=== PATIENT | male | born 1970 | race American Indian/Alaskan Native ===

== ENCOUNTER 2017-11-16 10:58 | Emergency (ER) | payer SELFPAY ==
[2017-11-16 11:17] VITALS: BP 104/67
[2017-11-16] MEDS ORDERED: PEPCID PO ONE (12:52)
[2017-11-16] MEDS ORDERED: TORADOL IM ONE (12:52)
--- NOTE | 2017-11-16 12:54 | Emergency Department Report ---
Blank Doc - Documentation Documentation: Patient is a 47-year-old male whose presenting with lower chest discomfort. Patient states he has right and left lower chest pain along the distribution of his diaphragm. Patient states it's a pleuritic pain and also hurts when he moves. Patient denies any cough congestion and fevers chills nausea vomiting. Patient does have some mild shortness of breath associated with this pain. Patient's EKG is within normal limits. Because of the pleuritic nature of the patient's pain and a d-dimer has been order patient's pain has been constant troponin has been ordered to rule out acute coronary syndrome. Chest x-ray will be performed as well. Patient will be reassessed. Ed
--- NOTE | 2017-11-16 13:00 | Emergency Department Report ---
ED Chest Pain HPI - General Chief Complaint: Chest Pain Stated Complaint: CHEST PAIN Time Seen by Provider: 11/16/17 12:47 Source: patient, family Mode of arrival: Ambulatory Limitations: No Limitations - History of Present Illness Initial Comments: Patient is a 47-year-old male whose presenting with lower chest discomfort. Patient states he has right and left lower chest pain along the distribution of his diaphragm. Patient states it's a pleuritic pain and also hurts when he moves. Patient denies any cough congestion and fevers chills nausea vomiting. Patient does have some mild shortness of breath associated with this pain. MD Complaint: chest pain, other (shortness of breath) -: This morning Onset: during rest Pain Location: left chest (left lower chest) Pain Radiation: none Severity: severe Severity scale (0 -10): 9 Quality: sharp Consistency: intermittent Improves With: nothing Worsens With: inspiration Context: other (unknown) re: other (some shortness of breath which is intermittent). denies: nausea, vomting, diaphoresis, dyspnea, sense of impending doom Other Symptoms: denies: cough, fever, syncope, rash, acid taste in mouth, leg swelling, palpitations, burping Treatments Prior to Arrival: none Aspirin use within the Past 7 Days: (0) No - Related Data On Oral Contraceptives: No Home Medications Medication Instructions Recorded Confirmed Last Taken No Known Home Medications [No 11/16/17 11/16/17 Unknown Reported Home Medications] Allergies Allergy/AdvReac Type Severity Reaction Status Date / Time No Known Allergies Allergy Verified 11/16/17 11:14 Heart Score - HEART Score History: Slightly suspicious EKG: Normal Age: 45-65 Risk factors: 1-2 risk factors Troponin: < normal limit HEART Score: 2 - Critical Actions Critical Actions: 0-3 pts:0.9-1.7%risk of adverse cardiac event.Candidate for discharge ED Review of Systems ROS: Stated complaint: CHEST PAIN Other details as noted in HPI Constitutional: denies: chills, fever Eyes: denies: eye pain, eye discharge, vision change ENT: denies: ear pain, throat pain Respiratory: SOB with exertion, SOB at rest. denies: cough, orthopnea, shortness of breath, stridor, wheezing Cardiovascular: chest pain. denies: palpitations, dyspnea on exertion, edema, syncope, paroxysmal nocturnal dyspnea Gastrointestinal: denies: abdominal pain, nausea, vomiting, diarrhea, constipation, hematemesis, melena, hematochezia Genitourinary: denies: dysuria Musculoskeletal: denies: back pain, joint swelling, arthralgia, myalgia Skin: denies: rash, lesions Neurological: denies: headache, weakness, numbness, paresthesias, abnormal gait , vertigo Psychiatric: denies: anxiety ED Past Medical Hx - Past Medical History Previous Medical History?: No - Surgical History Past Surgical History?: No - Family History Family history: hypertension - Social History Smoking Status: Never Smoker Substance Use Type: None - Medications Home Medications: Home Medications Medication Instructions Recorded Confirmed Last Taken Type No Known Home Medications [No 11/16/17 11/16/17 Unknown History Reported Home Medications] ED Physical Exam - General Limitations: No Limitations General appearance: alert, in no apparent distress - Head Head exam: Present: atraumatic, normocephalic, normal inspection - Eye Eye exam: Present: normal appearance, PERRL, EOMI - ENT ENT exam: Present: normal exam, normal orophraynx, mucous membranes moist - Neck Neck exam: Present: normal inspection, full ROM, other (no C-spine tenderness). Absent: tenderness, meningismus, lymphadenopathy - Respiratory Respiratory exam: Present: normal lung sounds bilaterally. Absent: respiratory distress, wheezes, rales, rhonchi, stridor, chest wall tenderness, accessory muscle use, decreased breath sounds, prolonged expiratory - Cardiovascular Cardiovascular Exam: Present: regular rate, normal rhythm, normal heart sounds. Absent: systolic murmur, diastolic murmur, JVD, S3, S4 - GI/Abdominal GI/Abdominal exam: Present: soft, normal bowel sounds. Absent: distended, tenderness, guarding, rebound, rigid, organomegaly, mass, bruit, pulsatile mass , hernia - Extremities Exam Extremities exam: Present: normal inspection, full ROM, normal capillary refill , other (no clubbing, cyanosis or edema. +2 pulses to all extremities and no neurovascular compromise). Absent: tenderness, pedal edema, joint swelling, calf tenderness - Back Exam Back exam: Present: normal inspection, full ROM, other (ambulates without any difficulties). Absent: tenderness, CVA tenderness (R), CVA tenderness (L), muscle spasm, paraspinal tenderness, vertebral tenderness, rash noted - Neurological Exam Neurological exam: Present: alert, oriented X3, normal gait, reflexes normal. Absent: motor sensory deficit - Psychiatric Psychiatric exam: Present: normal affect, normal mood - Skin Skin exam: Present: warm, dry, intact, normal color. Absent: rash ED Course Vital Signs 11/16/17 11/16/17 11:14 13:27 Temperature 98.7 F Pulse Rate 92 H Respiratory 16 18 Rate Blood Pressure 104/67 O2 Sat by Pulse 98 Oximetry Vital Signs 11/16/17 11/16/17 11/16/17 11:14 13:27 16:56 Temperature 98.7 F 98.7 F Pulse Rate 92 H 83 Respiratory 16 18 15 Rate Blood Pressure 104/67 Blood Pressure 104/67 [Right] O2 Sat by Pulse 98 97 Oximetry - Reevaluation(s) Reevaluation #1: 11/16/17 14:03 Patient stable throughout ED course. He was given Pepcid and Toradol in the emergency room. He said he is feeling better. Still awaiting d-dimer. Chest x-ray stable Reevaluation #2: 11/16/17 17:54 Patient is stable and he denies any chest pain, shortness of breath or pain with inspiration. Denies any abdominal pain, nausea diarrhea or vomiting. Patient said he feel a lot better and ready to go home. He has an appointment with his [facility] doctor tomorrow and also has an appointment to have a abdominal ultrasound the [facility] tomorrow. JOSEPH score - Joseph Score Age > 65: (0) No Aspirin use within the Past 7 Days: (0) No 3 or more CAD Risk Factors: (0) No 2 or more Angina events in past 24 hrs: (0) No Known CAD with more than 50% Stenosis: (0) No Elevated Cardiac Markers: (0) No ST Deviation Greater than 0.5mm: (0) No JOSEPH Score: 0 ED Medical Decision Making - Lab Data Result diagrams: 11/16/17 13:25 11/16/17 13:25 Lab Results 11/16/17 11/16/17 11/16/17 Range/Units 13:25 13:25 13:25 WBC 10.5 (4.5-11.0) K/mm3 RBC 4.53 (3.65-5.03) M/mm3 Hgb 12.2 (11.8-15.2) gm/dl Hct 38.7 (35.5-45.6) % MCV 85 (84-94) fl MCH 27 L (28-32) pg MCHC 32 (32-34) % RDW 18.9 H (13.2-15.2) % Plt Count 267 (140-440) K/mm3 Lymph % (Auto) 4.8 L (13.4-35.0) % [place] % (Auto) 4.2 (0.0-7.3) % Eos % (Auto) 3.2 (0.0-4.3) % Baso % (Auto) 0.3 (0.0-1.8) % Lymph # 0.5 L (1.2-5.4) K/mm3 [place] # 0.4 (0.0-0.8) K/mm3 Eos # 0.3 (0.0-0.4) K/mm3 Baso # 0.0 (0.0-0.1) K/mm3 Seg Neutrophils % 87.5 H (40.0-70.0) % Seg Neutrophils # 9.2 H (1.8-7.7) K/mm3 D-Dimer 6569.69 H (0-234) ng/mlDDU Sodium 138 (137-145) mmol/L Potassium 4.0 (3.6-5.0) mmol/L Chloride 101.4 (98-107) mmol/L Carbon Dioxide 24 (22-30) mmol/L Anion Gap 17 mmol/L BUN 15 (9-20) mg/dL Creatinine 1.1 (0.8-1.5) mg/dL Estimated GFR > 60 ml/min BUN/Creatinine Ratio 14 % Glucose 122 H (75-100) mg/dL Calcium 9.2 (8.4-10.2) mg/dL Total Bilirubin 0.40 (0.1-1.2) mg/dL AST 17 (5-40) units/L ALT 12 (7-56) units/L Alkaline Phosphatase 66 (35-129) units/L Troponin T < 0.010 (0.00-0.029) ng/mL Total Protein 6.8 (6.3-8.2) g/dL Albumin 3.8 L (3.9-5) g/dL Albumin/Globulin Ratio 1.3 % - EKG Data -: EKG Interpreted by Me (EKG reveals sinus rhythm at 90 bpm) EKG shows normal: sinus rhythm Rate: normal - EKG Data Interpretation: no acute changes, normal EKG - Radiology Data Radiology results: report reviewed Chest x-ray dictated by radiologist's Dr. Newby and reveals no acute cardiopulmonary processes. Report reviewed by myself. CTA of the chest without any acute findings. This was dictated by radiologist and reviewed by myself. See report below Patient: ALYSSIA SONG MR#: [id number] : 1970 Acct:[id number] Age/Sex: 47 / M ADM Date: 11/16/17 Loc: ED Attending Dr: Ordering Physician: MISSY DOMINGO Date of Service: 11/16/17 Procedure(s): CT angio chest Accession Number(s): [id number] cc: MISSY DOMINGO FINAL REPORT EXAM: CT ANGIO CHEST HISTORY: chest pain with inspiration TECHNIQUE: Enhanced CT of the chest at 1.25 mm axial intervals following a pulmonary embolism protocol. Coronal and sagittal imaging were also obtained. Coronal oblique MIP projections were obtained. Contrast: Intravenous contrast given PRIORS: None. FINDINGS: There is no evidence for pulmonary embolism in the main pulmonary artery, right and left pulmonary arteries or their major distributions. However, CT does not exclude distal pulmonary emboli. There is breathing artifact present through the lung bases which somewhat limits accuracy. Linear markings in the right lung base are likely due to the artifact although minimal atelectasis in the entirely exclude. Otherwise, the lung parenchyma are expanded and clear with no evidence for parenchymal nodules, infiltrates, congestion, or pleural effusion. There is no evidence for mediastinal, hilar, or axillary adenopathy. Cardiovascular structures are within normal limits. No evidence for ventricular chamber enlargement is seen. Images through the lung bases include the upper abdomen which show no abnormalities of the visualized abdominal viscera. Bony structures demonstrate no focal abnormalities. IMPRESSION: No evidence for pulmonary embolism. Exam is limited by breathing artifact in the lung bases. Possible mild atelectasis in the right lung base versus artifact. Transcribed By: [facility] Dictated By: ROXANN TRUJILLO MD Electronically Authenticated By: ROXANN TRUJILLO MD Signed Date/Time: 11/16/171700 DD/ 00 TD/TT: 11/16/171700 - Medical Decision Making This is a 47-year-old male well-nourished well-developed that presented to the emergency room for chest pain and shortness of breath worse with taking a deep breath in. He is here to be evaluated. Patient's that he has appointment at the ultrasound tomorrow to check his pancreas because he has a history of pancreatitis but he is not having any abdominal pain, nausea or vomiting and/or diarrhea at present. He is here to be seen for chest pain and shortness of breath. This started last night. Patient was screened by Dr. De Dios and seen and evaluated by myself. CBC stable but minor abnormalities. White count is stable, chemistries stable with minor abnormalities. Cardiac troponin normal findings. Chest x-ray reveals no acute cardiopulmonary findings. This is dictated by radiologist and reviewed by myself. D-dimer greater than 6659.69 CT of the chest was done and dictated by radiologist's and reviewed by myself. no pulmonary embolism seen. No acute findings. Results of laboratory and x-ray findings to include CT scan and chest x-ray was given to the patient and he voiced understanding . Patient is stable and pain has resolved without any shortness of breath prior to discharge. He was given Toradol 60 mg IM and Pepcid 40 mg when necessary emergency room. Patient has appointment tomorrow with [facility] to have ultrasound of the abdomen for what he said he has history of pancreatitis but he is asymptomatic without any abdominal tenderness or complaints of abdominal pain. Patient with atypical chest pain, shortness of breath, elevated d-dimer suspect from chronic. Patient educated on diagnosis, treatment plan, medication and laboratory and diagnostic tests, follow-up and he has a primary care physician which is the [facility] which she said he has appointment with tomorrow and also to have ultrasound tomorrow. I spoke with Dr. De Dios and he is okay with patient be discharged from emergency room. Vital signs are stable, afebrile and is nontoxic in appearance. - Differential Diagnosis ACS, costochondritis, PND, pleuritic chest pain, atypical chest pain Critical care attestation.: If time is entered above; I have spent that time in minutes in the direct care of this critically ill patient, excluding procedure time. ED Disposition Clinical Impression: Atypical chest pain, Shortness of breath Disposition: DC- TO HOME OR SELFCARE Is pt being admited?: No Does the pt Need Aspirin: No Condition: Stable Instructions: Chest Pain (ED), Dyspnea (ED) Additional Instructions: [facility] and please remember to go for your ultrasound of the abdomen. If he is symptoms return, return to the emergency room. Referrals: PRIMARY CARE, [Primary Care Provider] - 11/17/17 [facility] [Outside] - 11/17/17 Forms: Accompanied Note, Work/School Release Form(ED)
--- NOTE | 2017-11-16 13:17 | XRay Report ---
CHEST TWO VIEWS: 11/16/17 10:58:00 CLINICAL: Chest pain and shortness of breath. COMPARISON: None FINDINGS: Normal heart and pulmonary vasculature. The lungs are normally expanded and clear.The bones and soft tissues are unremarkable. IMPRESSION: Normal chest.
[2017-11-16 13:41] LABS: Basophils % (Auto) 0.3 % (0.0-1.8); Eosinophils # (Auto) 0.3 K/mm3 (0.0-0.4); Eosinophils % (Auto) 3.2 % (0.0-4.3); Hematocrit 38.7 % (35.5-45.6); Hemoglobin 12.2 gm/dl (11.8-15.2); Lymphocytes # (Auto) 0.5 K/mm3 (1.2-5.4); Lymphocytes % (Auto) 4.8 % (13.4-35.0); Mean Corpuscular HGB Conc 32 % (32-34); Mean Corpuscular Hemoglobin 27 pg (28-32); Mean Corpuscular Volume 85 fl (84-94); Monocytes # (Auto) 0.4 K/mm3 (0.0-0.8); Monocytes % (Auto) 4.2 % (0.0-7.3); Platelet Count 267 K/mm3 (140-440); Red Blood Count 4.53 M/mm3 (3.65-5.03); Red Cell Distribution Width 18.9 % (13.2-15.2)
[2017-11-16 14:04] LABS: Alanine Aminotransferase 12 units/L (7-56); Albumin 3.8 g/dL (3.9-5); BUN/Creatinine Ratio 14; Blood Urea Nitrogen 15 mg/dL (9-20); Calcium 9.2 mg/dL (8.4-10.2); Hemolysis Index 6
--- NOTE | 2017-11-16 17:05 | Cat Scan Report ---
FINAL REPORT EXAM: CT ANGIO CHEST HISTORY: chest pain with inspiration TECHNIQUE: Enhanced CT of the chest at 1.25 mm axial intervals following a pulmonary embolism protocol. Coronal and sagittal imaging were also obtained. Coronal oblique MIP projections were obtained. Contrast: Intravenous contrast given PRIORS: None. FINDINGS: There is no evidence for pulmonary embolism in the main pulmonary artery, right and left pulmonary arteries or their major distributions. However, CT does not exclude distal pulmonary emboli. There is breathing artifact present through the lung bases which somewhat limits accuracy. Linear markings in the right lung base are likely due to the artifact although minimal atelectasis in the entirely exclude. Otherwise, the lung parenchyma are expanded and clear with no evidence for parenchymal nodules, infiltrates, congestion, or pleural effusion. There is no evidence for mediastinal, hilar, or axillary adenopathy. Cardiovascular structures are within normal limits. No evidence for ventricular chamber enlargement is seen. Images through the lung bases include the upper abdomen which show no abnormalities of the visualized abdominal viscera. Bony structures demonstrate no focal abnormalities. IMPRESSION: No evidence for pulmonary embolism. Exam is limited by breathing artifact in the lung bases. Possible mild atelectasis in the right lung base versus artifact.
== END 2017-11-16 18:18 | disposition home or self-care (01) ==
LOC: ED 10:58
DX: R07.89 Other chest pain (principal)
CPT/HCPCS: 36415; 71046; 71275; 80053; 84484; 85025; 85379; 93005; 93010; 96372; 99284; J1885; Q9967